=== PATIENT | male | born 1980 | race Caucasian/White ===

== ENCOUNTER 2020-11-24 07:06 | Emergency (ER) | payer SELFPAY ==
[2020-11-24 08:37] LABS: SARS-COV-2 RT PCR NEGATIVE (NEGATIVE)
--- NOTE | 2020-11-24 08:38 | ER ---
Nurse's Notes [facility] Name: Rich Land Age: 40 yrs Sex: Male : 1980 Arrival Date: 11/24/2020 Time: 07:09 Bed Waiting Private MD: Diagnosis: Acute upper respiratory infection, unspecified Presentation: 11/24 07:14 Chief complaint: Patient states: yesterday i started getting bad congestion. cough. tw2 then last night i got sob and tightness in chest. Coronavirus screen: congestion, shortness of breath, Client presents with at least one sign or symptom that may indicate coronavirus-19. Standard/surgical mask placed on the client. Provider contacted for isolation considerations. Ebola Screen: Patient denies travel to an Ebola-affected area in the 21 days before illness onset. Initial Sepsis Screen: Does the patient meet any 2 criteria? No. Patient's initial sepsis screen is negative. Does the patient have a suspected source of infection? No. Patient's initial sepsis screen is negative. Risk Assessment: Do you want to hurt yourself or someone else? Patient reports no desire to harm self or others. Onset of symptoms was November 24, 2020. 07:14 Method Of Arrival: Ambulatory tw2 07:14 Acuity: BHAVYA 4 tw2 Triage Assessment: 07:17 General: Appears in no apparent distress. Behavior is calm, cooperative, appropriate tw2 for age. Pain: Denies pain. EENT: Reports nasal congestion nasal discharge. Respiratory: Reports. 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 - Social history:: Smoking status: Reported history of juuling and/or vaping. 5% nicotine. Screenin:44 Abuse screen: Denies threats or abuse. Nutritional screening: No deficits noted. tw2 Tuberculosis screening: No symptoms or risk factors identified. Fall Risk None identified. Assessment: 07:29 Reassessment: pt swabbed in triage. tw2 08:44 Reassessment: Patient appears in no apparent distress at this time. No changes from tw2 previously documented assessment. Patient and/or family updated on plan of care and expected duration. Pain level reassessed. Patient is alert, oriented x 3, equal unlabored respirations, skin warm/dry/pink. provider in triage room going over results at this time. Vital Signs: 07:14 BP 137 / 86; Pulse 77; Resp 17; Temp 98.2; Pulse Ox 100% on R/A; tw2 ED Course: 07:09 Patient arrived in ED. as 07:14 Brigid Srinivasan FNP-C is [facility]. kb 07:14 Marlo Richardson MD is Attending Physician. kb 07:16 Triage completed. tw2 07:17 Arm band placed on. tw2 08:44 n/a. tw2 08:44 Assist provider with bone marrow aspiration. Patient did not have IV access during this tw2 emergency room visit. Administered Medications: No medications were administered Outcome: 08:38 Discharge ordered by . kb 08:44 Discharged to home ambulatory. tw2 08:44 Condition: stable 08:44 Discharge instructions given to patient, Instructed on discharge instructions, follow up and referral plans. Demonstrated understanding of instructions, follow-up care. 08:45 Patient left the ED. tw2 Signatures: Brigid Srinivasan FNP-C FNP-Ckb Martinez, Amelia as Lily Weston, RN RN tw2
--- NOTE | 2020-11-24 08:38 | EDPHYS ---
Physician Documentation [facility] Name: Rich Land Age: 40 yrs Sex: Male : 1980 Arrival Date: 11/24/2020 Time: 07:09 Bed Waiting Private MD: ED Physician Marlo Richardson HPI: 11/24 08:18 This 40 yrs old Male presents to ER via Ambulatory with complaints of Cough, kb Congestion. 08:18 The patient or guardian reports cough, that is intermittent, described as mild, kb difficulty breathing. Onset: The symptoms/episode began/occurred yesterday. Severity of symptoms: At their worst the symptoms were moderate, in the emergency department the symptoms have improved. Modifying factors: The symptoms are alleviated by nothing, the symptoms are aggravated by nothing. Associated signs and symptoms: The patient has no apparent associated signs or symptoms. The patient has not experienced similar symptoms in the past. The patient has not recently seen a physician. Patient reports cough and congestion started yesterday. Last night had shortness of breath. This morning congestion and cough continue. No fever or chills.. 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 - Social history:: Smoking status: Reported history of juuling and/or vaping. 5% nicotine. ROS: 07:19 Constitutional: Negative for fever, chills, and weight loss. kb 07:19 ENT: Positive for sinus congestion. 07:19 Respiratory: Positive for cough, shortness of breath. 07:19 All other systems are negative. Exam: 08:19 Constitutional: This is a well developed, well nourished patient who is awake, alert, kb and in no acute distress. Head/Face: Normocephalic, atraumatic. ENT: Moist Mucous membranes Cardiovascular: Regular rate and rhythm with a normal S1 and S2. No gallops, murmurs, or rubs. No pulse deficits. Respiratory: Respirations even and unlabored. No increased work of breathing, no retractions or nasal flaring. Abdomen/GI: Soft, non-tender. No distention Skin: Warm, dry with normal turgor. Normal color. MS/ Extremity: Pulses equal, no cyanosis. Neurovascular intact. Full, normal range of motion. Neuro: Awake and alert, GCS 15, oriented to person, place, time, and situation. Moves all extremities. Normal gait. Psych: Awake, alert, with orientation to person, place and time. Behavior, mood, and affect are within normal limits. Vital Signs: 07:14 BP 137 / 86; Pulse 77; Resp 17; Temp 98.2; Pulse Ox 100% on R/A; tw2 MDM: 07:14 Patient medically screened. kb 08:19 Data reviewed: vital signs, nurses notes. Data interpreted: Pulse oximetry: on room air kb is 100 %. Interpretation: normal. Counseling: I had a detailed discussion with the patient and/or guardian regarding: the historical points, exam findings, and any diagnostic results supporting the discharge/admit diagnosis, lab results, the need for outpatient follow up, a family practitioner, to return to the emergency department if symptoms worsen or persist or if there are any questions or concerns that arise at home. 11/24 08:37 Order name: COVID-19/FLU A+B; Complete Time: 08:37 EDMS Administered Medications: No medications were administered Disposition Summary: 11/24/20 08:38 Discharge Ordered Location: Home kb Condition: Stable kb Diagnosis - Acute upper respiratory infection, unspecified kb Followup: kb - With: Emergency Department - When: As needed - Reason: Worsening of condition Followup: kb - With: Private Physician - When: 2 - 3 days - Reason: Recheck today's complaints, Continuance of care, Re-evaluation by your physician Discharge Instructions: - Upper Respiratory Infection, Adult, [id number] kb - Viral Respiratory Infection, [id number] kb - Discharge Summary Sheet tw2 Forms: - Medication Reconciliation Form kb - Thank You Letter kb - Antibiotic Education kb - Work release form tw2 - Prescription Opioid Use kb Addendum: 11/26/2020 07:15 Co-signature as Attending Physician, Marlo Richardson MD. r n Signatures: Dispatcher [employer] EDNY Brigid Srinivasan, CHILD LIFE SPECIALIST-C CHILD LIFE SPECIALIST-Marlo Villalobos MD MD rn Wise, Tara, RN RN tw2 Corrections: (The following items were deleted from the chart) 11/24 07:58 07:19 CORONAVIRUS+MR.LAB.RAQUEL ordered. EDMS EDMS 07:59 07:19 Influenza Screen (A \T\ B)+KESHA.CHIOMA ordered. EDMS EDMS
[2020-11-24 08:50] VITALS: BP 137/86; TEMP 98.2; O2SAT 100
== END 2020-11-24 08:45 | disposition home or self-care (01) ==
LOC: ER 07:06
DX: J06.9 Acute upper respiratory infection, unspecified (principal); Z20.822 Contact with and (suspected) exposure to COVID-19
CPT/HCPCS: 0240U; 99284

== ENCOUNTER 2021-09-26 21:37 | Emergency (ER) | payer SELFPAY ==
[2021-09-26 22:36] LABS: Absolute Lymphocytes (CBC) 2.2 K/uL (0.7-4.9); Hematocrit 47.1 % (39.6-49.0); MCV 86.2 fL (80-100); MPV 6.9 fL (7.6-11.3); RBC Red Blood Cell Count 5.47 M/uL (4.33-5.43)
[2021-09-26 22:42] LABS: Albumin 4.1 g/dL (3.4-5.0); Bilirubin Direct 0.1 mg/dL (0-0.2); Bilirubin Total 0.5 mg/dL (0.2-1.0); Magnesium 2.2 mg/dL (1.8-2.4); Potassium 3.7 mmol/L (3.5-5.1); Protein, Total 7.6 g/dL (6.4-8.2); Troponin High Sensitivity 3.5 pg/mL (<58.9)
[2021-09-26 22:56] LABS: Protime INR 1.01
[2021-09-27 00:41] LABS: Urine Blood Negative (Negative); Urine Glucose Negative (Negative); Urine Protein Negative (Negative); Urine Specific Gravity >=1.030 (1.005-1.030); Urine pH 6.5 (5.0-7.0)
[2021-09-27] MEDS ORDERED: NA CHLORIDE 0.9% 1,000 ML ONE (00:49)
[2021-09-27 01:16] LABS: Barbiturates NEGATIVE (NEGATIVE); Benzodiazepines NEGATIVE (NEGATIVE); Cocaine NEGATIVE (NEGATIVE); METHAMPHETAM NEGATIVE (NEGATIVE); Methadone NEGATIVE (NEGATIVE); Opiates NEGATIVE (NEGATIVE); Phencyclidine NEGATIVE (NEGATIVE); THC Cannibis POSITIVE (NEGATIVE)
--- NOTE | 2021-09-27 02:12 | EDPHYS ---
Physician Documentation [facility] Name: Rich Land Age: 41 yrs Sex: Male : 1980 Arrival Date: 09/26/2021 Time: 21:43 Bed 6 Private MD: ED Physician Otis Bashir HPI: 09/26 22:15 This 41 yrs old Male presents to ER via Ambulatory with complaints of Chest Pain. mh7 22:15 The patient or guardian reports chest pain that is located primarily in the anterior mh7 chest wall, left. Onset: 2 week(s) ago. The pain does not radiate. 22:15 Associated signs and symptoms: Pertinent negatives: abdominal pain, cough, diaphoresis, mh7 dizziness, headache, lower extremity pain, lower extremity swelling, lightheadedness, nausea, near syncope, palpitations, recent travel, shortness of breath, syncope, vomiting. 22:15 The chest pain is described as a pressure. Duration: The patient or guardian reports mh7 multiple episodes, that are intermittent, that wax and wane, with no pattern. Modifying factors: The symptoms are alleviated by nothing. the symptoms are aggravated by nothing. Severity of pain: At its worst the pain was moderate 7 day(s) ago, in the emergency department the pain has improved moderately. Historical: - Allergies: 21:56 No Known Allergies; eh3 - Home Meds: 21:56 None [Active]; eh3 - Immunization history:: Adult Immunizations unknown. - Social history:: Smoking status: Patient/guardian denies using tobacco, Stopped _ months ago 9 Patient/guardian denies using alcohol, street drugs, tobacco products, Smoking status: Reported history of juuling and/or vaping. ROS: 22:15 Constitutional: Negative for fever, chills, and weight loss, Eyes: Negative for injury, mh7 pain, redness, and discharge, ENT: Negative for injury, pain, and discharge, Neck: Negative for injury, pain, and swelling, Respiratory: Negative for shortness of breath, cough, wheezing, and pleuritic chest pain, Abdomen/GI: Negative for abdominal pain, nausea, vomiting, diarrhea, and constipation, Back: Negative for injury and pain, : Negative for injury, bleeding, discharge, and swelling, MS/Extremity: Negative for injury and deformity, Skin: Negative for injury, rash, and discoloration, Neuro: Negative for headache, weakness, numbness, tingling, and seizure, Psych: Negative for depression, anxiety, suicide ideation, homicidal ideation, and hallucinations, Allergy/Immunology: Negative for hives, rash, and allergies, Endocrine: Negative for neck swelling, polydipsia, polyuria, polyphagia, and marked weight changes, Hematologic/Lymphatic: Negative for swollen nodes, abnormal bleeding, and unusual bruising. Exam: 22:15 Constitutional: This is a well developed, well nourished patient who is awake, alert, mh7 and in no acute distress. Head/Face: Normocephalic, atraumatic. Eyes: Pupils equal round and reactive to light, extra-ocular motions intact. Lids and lashes normal. Conjunctiva and sclera are non-icteric and not injected. Cornea within normal limits. Periorbital areas with no swelling, redness, or edema. Neck: Trachea midline, no thyromegaly or masses palpated, and no cervical lymphadenopathy. Supple, full range of motion without nuchal rigidity, or vertebral point tenderness. No Meningismus. Chest/axilla: Normal chest wall appearance and motion. Nontender with no deformity. No lesions are appreciated. Cardiovascular: Regular rate and rhythm with a normal S1 and S2. No gallops, murmurs, or rubs. Normal PMI, no JVD. No pulse deficits. Respiratory: Lungs have equal breath sounds bilaterally, clear to auscultation and percussion. No rales, rhonchi or wheezes noted. No increased work of breathing, no retractions or nasal flaring. Abdomen/GI: Soft, non-tender, with normal bowel sounds. No distension or tympany. No guarding or rebound. No evidence of tenderness throughout. Back: No spinal tenderness. No costovertebral tenderness. Full range of motion. Skin: Warm, dry with normal turgor. Normal color with no rashes, no lesions, and no evidence of cellulitis. MS/ Extremity: Pulses equal, no cyanosis. Neurovascular intact. Full, normal range of motion. Neuro: Awake and alert, GCS 15, oriented to person, place, time, and situation. Cranial nerves II-XII grossly intact. Motor strength 5/5 in all extremities. Sensory grossly intact. Cerebellar exam normal. Normal gait. Psych: Awake, alert, with orientation to person, place and time. Behavior, mood, and affect are within normal limits. Vital Signs: 21:51 BP 137 / 97; Pulse 80; Resp 18; Temp 97.9(TE); Pulse Ox 100% on R/A; Weight 92.99 kg; eh3 Height 6 ft. 2 in. (187.96 cm); Pain 9/10; 22:16 BP 131 / 88; Pulse 81; Resp 17 S; Pulse Ox 100% on R/A; Pain 5/10; aa9 22:27 BP 135 / 90; Pulse 71; Resp 18; Pulse Ox 98% on R/A; kd3 21:51 Body Mass Index 26.32 (92.99 kg, 187.96 cm) 3 MDM: 09/27 02:09 Differential diagnosis: acute myocardial infarction, acute pericarditis, anxiety, mh7 coronary artery disease chest wall pain, costochondritis, esophagitis, gastritis, gastroesophageal reflux disease (GERD), myocarditis, pancreatitis, pericarditis, pleurisy, pneumonia, pneumothorax, pulmonary embolus. HEART Score: History: Slightly Suspicious (0), ECG: Normal (0), Age: < or = 45 years (0), Risk Factors: No Risk Factors Known (0), Troponin: < or = 1 x Normal Limit (0), Total Score = 0. Data reviewed: vital signs, nurses notes, lab test result(s), cardiac enzymes, CBC, electrolytes, urinalysis, EKG, radiologic studies, plain films. Data interpreted: Pulse oximetry: on room air is 98 %. Interpretation: normal. Counseling: I had a detailed discussion with the patient and/or guardian regarding: the historical points, exam findings, and any diagnostic results supporting the discharge/admit diagnosis, lab results, radiology results, the need for outpatient follow up, to return to the emergency department if symptoms worsen or persist or if there are any questions or concerns that arise at home. Response to treatment: the patient's symptoms have resolved after treatment, the patient's blood pressure is in an acceptable range, mental status has returned to baseline, the patient no longer shows bradycardia, the patient is not short of breath, the patient is not tachycardic, the patient's pain is gone, the patient's temperature has normalized. 02:11 Patient medically screened. [facility] 09/26 22:03 Order name: Basic Metabolic Panel; Complete Time: 00:38 [facility] 09/26 22:03 Order name: CBC with Diff; Complete Time: 00:38 [facility] 09/26 22:03 Order name: LFT's; Complete Time: 00:38 [facility] 09/26 22:03 Order name: Magnesium; Complete Time: 00:38 [facility] 09/26 22:03 Order name: NT PRO-BNP; Complete Time: 00:38 [facility] 09/26 22:03 Order name: PT-INR; Complete Time: 00:38 [facility] 09/26 22:03 Order name: Troponin HS; Complete Time: 00:38 [facility] 09/26 22:21 Order name: UDS; Complete Time: 01:34 [facility] 09/26 22:22 Order name: COVID-19 SARS RT PCR (Document "Date of Onset" if Symptomatic); Complete [facility] Time: 00:38 09/26 22:22 Order name: D-Dimer [facility] 09/26 22:26 Order name: D-Dimer; Complete Time: 00:38 [facility] 09/26 22:26 Order name: Creatine Phosphokinase; Complete Time: 00:38 [facility] 09/27 00:41 Order name: Urine Dipstick-Ancillary; Complete Time: 01:34 [facility] 09/26 22:03 Order name: XRAY Chest (1 view) 09/26 22:03 Order name: EKG; Complete Time: 22:05 09/26 22:03 Order name: Cardiac monitoring; Complete Time: 22:19 [facility] 09/26 22:03 Order name: EKG - Nurse/Tech; Complete Time: 22:25 [facility] 09/26 22:03 Order name: IV Saline Lock; Complete Time: 22:19 [facility] 09/26 22:03 Order name: Labs collected and sent; Complete Time: 22:19 [facility] 09/26 22:03 Order name: O2 Per Protocol; Complete Time: 22:19 [facility] 09/26 22:03 Order name: O2 Sat Monitoring; Complete Time: 22:19 [facility] 09/26 22:21 Order name: Urine Dipstick-Ancillary (obtain specimen); Complete Time: 00:41 [facility] Administered Medications: 00:44 Drug: NS 0.9% 1000 ml Route: IV; Rate: 1000 ml; Site: right antecubital; kd3 02:46 Follow up: Response: No adverse reaction; IV Status: Completed infusion kd3 Disposition Summary: 09/27/21 02:11 Discharge Ordered Location: Home [facility] Problem: an ongoing problem [facility] Symptoms: have improved [facility] Condition: Stable [facility] Diagnosis - Chest pain, unspecified [facility] - Cannabis abuse [facility] Followup: [facility] - With: Private Physician - When: 1 - 2 days - Reason: Worsening of condition, Recheck today's complaints, Continuance of care, Re-evaluation by your physician Discharge Instructions: - Discharge Summary Sheet [facility] - Cannabis Use Disorder [facility] - Nonspecific Chest Pain, Adult, [id number] [facility] Forms: - Medication Reconciliation Form [facility] - Thank You Letter [facility] - Antibiotic Education [facility] - Prescription Opioid Use [facility] Signatures: Dispatcher [employer] Otis Conklin MD MD 7 Siva Sanchez RN RN as6 Mahnaz Gray RN RN 3 Regina Arango [facility] Alysa Barton, MARGARITO RN aa9 Corrections: (The following items were deleted from the chart) 09/26 21:57 21:56 PMHx: recovering addict (meth); [place] [id number] 21:57 21:56 PSHx: hernia repair; [place] [id number] 22:23 22:21 CREATINE PHOSPHOKINASE+C.LAB.BRZ ordered. EDME EDME
--- NOTE | 2021-09-27 02:12 | ER ---
Nurse's Notes [facility] Name: Rich Land Age: 41 yrs Sex: Male : 1980 Arrival Date: 09/26/2021 Time: 21:43 Bed 6 Private MD: Diagnosis: Chest pain, unspecified;Cannabis abuse Presentation: 09/26 21:51 Chief complaint: Patient states: chest pain for past 2 weeks, worsened today at 1515. eh3 Pressure on left side of chest. Coronavirus screen: Vaccine status: Patient reports being unvaccinated. Ebola Screen: No symptoms or risks identified at this time. Initial Sepsis Screen: Does the patient meet any 2 criteria? No. Patient's initial sepsis screen is negative. Does the patient have a suspected source of infection? No. Patient's initial sepsis screen is negative. Risk Assessment: Do you want to hurt yourself or someone else? Patient reports no desire to harm self or others. Onset of symptoms was September 26, 2021 at 15:15. 21:51 Method Of Arrival: Ambulatory eh3 21:51 Acuity: BHAVYA 2 eh3 Triage Assessment: 21:56 General: Appears in no apparent distress. comfortable, Behavior is calm, cooperative, eh3 appropriate for age. Pain: Complains of pain in left clavicle and anterior aspect of left upper chest Pain does not radiate. Pain currently is 4 out of 10 on a pain scale. at worst was 9 out of 10 on a pain scale. Quality of pain is described as pressure, squeezing, Pain began suddenly, at 1515 today Is intermittent. EENT: No signs and/or symptoms were reported regarding the EENT system. Neuro: Level of Consciousness is awake, alert, obeys commands, Oriented to person, place, time, situation. Cardiovascular: Reports chest pain, Capillary refill < 3 seconds Patient's skin is warm and dry. Respiratory: Airway is patent Respiratory effort is even, unlabored. GI: No signs and/or symptoms were reported involving the gastrointestinal system. : No signs and/or symptoms were reported regarding the genitourinary system. Derm: No signs and/or symptoms reported regarding the dermatologic system. Musculoskeletal: No signs and/or symptoms reported regarding the musculoskeletal system. Historical: - Allergies: 21:56 No Known Allergies; eh3 - Home Meds: 21:56 None [Active]; eh3 - Immunization history:: Adult Immunizations unknown. - Social history:: Smoking status: Patient/guardian denies using tobacco, Stopped _ months ago 9 Patient/guardian denies using alcohol, street drugs, tobacco products, Smoking status: Reported history of juuling and/or vaping. Screenin:12 Abuse screen: Denies threats or abuse. Denies injuries from another. Nutritional aa9 screening: No deficits noted. Tuberculosis screening: No symptoms or risk factors identified. Fall Risk None identified. Assessment: 22:09 General:. General: Appears in no apparent distress. comfortable, Behavior is calm, aa9 cooperative, States,"The chest pain was 9/10 after work, a little after PM today when I was driving, my vision was blurry and I had to pullover.". Pain: Complains of pain in anterior aspect of left upper chest and left breast Pain does not radiate. Pain currently is 5 out of 10 on a pain scale. Pain began 2 weeks ago Is intermittent, Aggravated by every night when laying in bed. Vital Signs: 21:51 BP 137 / 97; Pulse 80; Resp 18; Temp 97.9(TE); Pulse Ox 100% on R/A; Weight 92.99 kg; 3 Height 6 ft. 2 in. (187.96 cm); Pain 9/10; 22:16 BP 131 / 88; Pulse 81; Resp 17 S; Pulse Ox 100% on R/A; Pain 5/10; aa9 22:27 BP 135 / 90; Pulse 71; Resp 18; Pulse Ox 98% on R/A; kd3 21:51 Body Mass Index 26.32 (92.99 kg, 187.96 cm) 3 ED Course: 21:43 Patient arrived in ED. ja2 21:56 Triage completed. eh3 21:56 Arm band placed on right wrist. eh3 22:01 Siva Sanchez RN is Primary Nurse. as6 22:11 Otis Bashir MD is Attending Physician. 7 22:12 Patient has correct armband on for positive identification. Bed in low position. Side aa9 rails up X2. Client placed on continuous cardiac and pulse oximetry monitoring. NIBP monitoring applied. 22:19 Troponin HS Sent. kd3 22:19 PT-INR Sent. kd3 22:19 NT PRO-BNP Sent. kd3 22:19 Magnesium Sent. kd3 22:19 LFT's Sent. kd3 22:19 CBC with Diff Sent. kd3 22:19 Basic Metabolic Panel Sent. kd3 22:19 Patient maintains SpO2 saturation greater than 95% on room air. aa9 22:28 XRAY Chest (1 view) In Process Unspecified. EDMS 22:32 COVID-19 SARS RT PCR (Document "Date of Onset" if Symptomatic) Sent. aa9 23:38 D-Dimer Sent. aa9 23:39 COVID-19 SARS RT PCR (Document "Date of Onset" if Symptomatic) Sent. aa9 09/27 00:41 UDS Sent. kd3 Administered Medications: 00:44 Drug: NS 0.9% 1000 ml Route: IV; Rate: 1000 ml; Site: right antecubital; kd3 02:46 Follow up: Response: No adverse reaction; IV Status: Completed infusion kd3 Medication: 09/26 22:27 VIS not applicable for this client. kd3 Outcome: 09/27 02:11 Discharge ordered by . [facility] 02:46 Patient left the ED. kd3 Signatures: Dispatcher [employer] Otis Conklin MD MD 7 Luz Main Ashby, RN RN as6 Mahnaz Gray RN RN kd3 Regina Arango 3 Alysa Barton, MARGARITO RN aa9 Corrections: (The following items were deleted from the chart) 09/26 21:57 21:56 PMHx: recovering addict (meth); 3 [facility] 21:57 21:56 PSHx: hernia repair; 3 3
[2021-09-27 02:51] VITALS: TEMP 97.9
[2021-09-27 02:58] VITALS: BP 135/90; O2SAT 98
--- NOTE | 2021-09-27 07:49 | EKG ---
Test Date: 2021-09-26 Test Time: 22:01:59 Tower Dragline Operator: ONEYDA MEASUREMENT RESULTS: Intervals: Rate: 68 MN: 144 QRSD: 88 QT: 368 QTc: 391 [place]: P: 87 MN: 144 QRS: 68 T: 54 INTERPRETIVE STATEMENTS: Normal sinus rhythm with sinus arrhythmia Normal ECG Compared to ECG 06/08/1999 19:58:00 T-wave abnormality no longer present Electronically Signed On 09-27-21 07:48:14 CDT by Adithya Velazquez
--- NOTE | 2021-09-27 11:33 | RAD REPORT ---
EXAM DESCRIPTION: RAD - Chest Single View - 09/26/2021 10:26 pm CLINICAL HISTORY: CHEST PAIN. COMPARISON: None. TECHNIQUE: Single view AP chest radiograph(s). FINDINGS: The lungs are clear. No pulmonary infiltrate or edema identified. No pleural effusion. N o pneumothorax. Nonenlarged cardiomediastinal silhouette. No significant osseous abnormality. IMPRESSION: No acute cardiopulmonary abnormality identified by radiograph. Electronically signed by: Stefanie Mace MD 09/26/2021 10:44 PM CDT Due to temporary technical issues with the PACS/Fluency reporting system, reports are being signed by the in house radiologists without review as a courtesy to insure prompt reporting. The interpreting radiologist is fully responsible for the content of the report.
== END 2021-09-27 02:46 | disposition home or self-care (01) ==
LOC: ER 21:37
DX: R07.89 Other chest pain (principal); F12.10 Cannabis abuse, uncomplicated; Z20.822 Contact with and (suspected) exposure to COVID-19
CPT/HCPCS: 36415; 71045; 80048; 80076; 80307; 81003; 82550; 83735; 83880; 84484; 85025; 85379; 85610; 93005; J7030; U0003

== ENCOUNTER 2022-08-23 08:17 | Emergency (ER) | payer SELFPAY ==
[2022-08-23] MEDS ORDERED: dexAMETHasone 10 MG/ML VIAL ONE (08:36)
--- NOTE | 2022-08-23 09:01 | EDPHYS ---
Physician Documentation [facility] Name: Rich Land Age: 42 yrs Sex: Male : 1980 Arrival Date: 08/23/2022 Time: 08:17 Bed 20 Private MD: ED Physician Caleb Lujan HPI: 08/23 08:19 This 42 yrs old Male presents to ER via Unassigned with complaints of Difficulty jmm Swallowing. 08:19 The patient presents with sore throat. Onset: The symptoms/episode began/occurred jmm gradually, 2 day(s) ago. Modifying factors: The symptoms are alleviated by nothing, the symptoms are aggravated by nothing. This is a 42 year old male with no chronic medical conditions that presents to the ED with complaints of sore throat, painful swallowing. Symptoms began approx 2 days ago. Denies infectious exposure. . Historical: - Allergies: 08:25 No Known Allergies; ll1 - PMHx: 08:25 None; ll1 - PSHx: 08:25 hernia repair; ll1 - Immunization history:: Client reports having NOT received the Covid vaccine. - Social history:: Smoking status: Reported history of juuling and/or vaping. ROS: 08:19 Constitutional: Positive for body aches. jmm 08:19 Respiratory: Positive for cough. 08:19 All other systems are negative. Exam: 08:19 Constitutional: This is a well developed, well nourished patient who is awake, alert, jmm and in no acute distress. Head/Face: atraumatic. Eyes: EOMI, no conjunctival erythema appreciated 08:19 Neck: Trachea midline, Supple Chest/axilla: Normal chest wall appearance and motion. Cardiovascular: Regular rate and rhythm. No edema appreciated Respiratory: Normal respirations, no respiratory distress appreciated Abdomen/GI: Non distended Back: Normal ROM Skin: General appearance color normal MS/ Extremity: Moves all extremities, no obvious deformities appreciated, no edema noted to the lower extremities Neuro: Awake and alert Psych: Behavior is normal, Mood is normal, Patient is cooperative and pleasant 08:19 ENT: Posterior pharynx: Airway: normal, Uvula: midline, erythema, that is moderate, exudate, that is moderate, peritonsillar mass, is not appreciated. Vital Signs: 08:25 BP 151 / 99; Pulse 88; Resp 16; Temp 98.2(O); Pulse Ox 99% on R/A; Weight 95.71 kg; ll1 Height 6 ft. 1 in. ; Pain 10; 08:25 Body Mass Index 27.84 (95.71 kg, 185.42 cm) ll1 08:25 Pain Scale: Adult ll1 MDM: 08:19 Patient medically screened. bs3 08/23 08:23 Order name: Strep jmm 08/23 08:45 Order name: Throat Culture EDMS Administered Medications: 08:30 Drug: Dexamethasone IM 10 mg Route: IM; Site: right deltoid; iw 08:40 Follow up: Response: No adverse reaction iw Disposition Summary: 08/23/22 09:00 Discharge Ordered Location: Home [facility] Condition: Stable [facility] Diagnosis - Acute pharyngitis, unspecified [facility] Followup: jmm - With: Private Physician - When: 2 - 3 days - Reason: Recheck today's complaints, Continuance of care, Re-evaluation by your physician Discharge Instructions: - Discharge Summary Sheet [facility] - Pharyngitis [facility] Forms: - Medication Reconciliation Form [facility] - Thank You Letter [facility] - Antibiotic Education jmm - Prescription Opioid Use [facility] - Work release form iw Prescriptions: - Amoxicillin 875 mg Oral Tablet - take 1 tablet by ORAL route every 12 hours for 10 days; 20 tablet; Refills: 0, [facility] Product Selection Permitted Signatures: Dispatcher [employer] EDMS Scotty Bright PA PA jmm Williams, Irene, RN RN iw Amaris Aleman RN RN ll1 Caleb Lujan MD MD bs3
--- NOTE | 2022-08-23 09:01 | ER ---
Nurse's Notes [facility] Name: Rich Land Age: 42 yrs Sex: Male : 1980 Arrival Date: 08/23/2022 Time: 08:17 Bed 20 Private MD: Diagnosis: Acute pharyngitis, unspecified Presentation: 08/23 08:25 Chief complaint: Patient states: Sore throat, weakness, diarrhea, slight cough started ll1 Saturday. No fever. Coronavirus screen: Vaccine status: Patient reports being unvaccinated. Client denies travel out of the [place] in the last 14 days. cough unrelated to allergies, diarrhea, fatigue, muscle pain, sore throat, Client presents with at least one sign or symptom that may indicate coronavirus-19. Standard/surgical mask placed on the client. Ebola Screen: Patient denies travel to an Ebola-affected area in the 21 days before illness onset. Initial Sepsis Screen: Does the patient meet any 2 criteria? No. Patient's initial sepsis screen is negative. Does the patient have a suspected source of infection? Yes: Other: sore throat. Risk Assessment: Do you want to hurt yourself or someone else? Patient reports no desire to harm self or others. Onset of symptoms was August 21, 2022. 08:25 Method Of Arrival: Ambulatory 1 08:25 Acuity: BHAVYA 4 ll1 Triage Assessment: 08:27 General: Appears uncomfortable, ill, Behavior is calm, cooperative, appropriate for 2 age. Pain: Complains of pain in throat Pain currently is 10 out of 10 on a pain scale. Quality of pain is described as aching, Pain began 2-3 days ago. Aggravated by eating, drinking. EENT: Reports pain when swallowing. Respiratory: Reports cough that is. GI: Reports diarrhea. :. Historical: - Allergies: 08:25 No Known Allergies; ll1 - PMHx: 08:25 None; ll1 - PSHx: 08:25 hernia repair; ll1 - Immunization history:: Client reports having NOT received the Covid vaccine. - Social history:: Smoking status: Reported history of juuling and/or vaping. Screenin:20 [facility] ED Fall Risk Assessment (Adult) History of falling in the last 3 months, iw including since admission No falls in past 3 months (0 pts). Abuse screen: Denies threats or abuse. Denies injuries from another. Nutritional screening: No deficits noted. Tuberculosis screening: No symptoms or risk factors identified. Assessment: 08:20 General: Appears in no apparent distress. Pain: Complains of pain in throat. Neuro: iw Level of Consciousness is awake, alert, obeys commands, Oriented to person, place, time, situation, Moves all extremities. Cardiovascular: Patient's skin is warm and dry. Respiratory: Respiratory effort is even, unlabored, Respiratory pattern is regular. Derm: Skin is intact, is healthy with good turgor. Musculoskeletal: Range of motion: intact in all extremities. Vital Signs: 08:25 BP 151 / 99; Pulse 88; Resp 16; Temp 98.2(O); Pulse Ox 99% on R/A; Weight 95.71 kg; ll1 Height 6 ft. 1 in. ; Pain 10/10; 08:25 Body Mass Index 27.84 (95.71 kg, 185.42 cm) ll1 08:25 Pain Scale: Adult ll1 ED Course: 08:19 Patient arrived in ED. rg4 08:20 Scotty Bright PA is PHCP. valeria 08:20 Caleb Lujan MD is Attending Physician. jmm 08:25 Arm band placed on Patient placed in an exam room, on a stretcher. ll1 08:26 Viji Stephen, MARGARITO is Primary Nurse. iw 08:27 Triage completed. ll1 09:20 Patient has correct armband on for positive identification. iw 09:20 No provider procedures requiring assistance completed. Patient did not have IV access iw during this emergency room visit. Administered Medications: 08:30 Drug: Dexamethasone IM 10 mg Route: IM; Site: right deltoid; iw 08:40 Follow up: Response: No adverse reaction iw Medication: 09:20 VIS not applicable for this client. iw Outcome: 09:00 Discharge ordered by . michele 09:21 Discharged to home ambulatory. iw 09:21 Condition: good 09:21 Discharge instructions given to patient, Instructed on discharge instructions, follow up and referral plans. medication usage, Demonstrated understanding of instructions, follow-up care, medications, Prescriptions given X 1. 09:22 Patient left the ED. em1 Signatures: Scotty Bright PA PA jmm Williams, Irene, MARGARITO RN iw Lemuel Jurado em1 Perla Horta rg4 Amaris Aleman, RN RN ll1
[2022-08-23 09:27] VITALS: BP 151/99; TEMP 98.2; O2SAT 99
== END 2022-08-23 09:22 | disposition home or self-care (01) ==
LOC: ER 08:17
DX: J02.9 Acute pharyngitis, unspecified (principal); R05.9 Cough, unspecified
CPT/HCPCS: 87070; 87081; 96372; 99284; J1100

== ENCOUNTER 2022-10-19 22:00 | Emergency (ER) | payer SELFPAY ==
[2022-10-19 23:27] LABS: Absolute Lymphocytes (CBC) 1.8 K/uL (0.7-4.9); Hematocrit 42.9 % (39.6-49.0); Lymphocytes % 16.6 % (15.3-44.8); MCV 89.4 fL (80-100); MPV 6.8 fL (7.6-11.3); RBC Red Blood Cell Count 4.81 M/uL (4.33-5.43)
[2022-10-19] MEDS ORDERED: NA CHLORIDE 0.9% 1,000 ML ONE (23:30)
[2022-10-19] MEDS ORDERED: KETOROLAC 30 MG/ML INJ ONE (23:30)
[2022-10-19 23:57] LABS: Albumin 3.7 g/dL (3.4-5.0); Bilirubin Total 0.3 mg/dL (0.2-1.0); Potassium 4.2 mEq/L (3.5-5.1); Protein, Total 7.3 g/dL (6.4-8.2)
--- NOTE | 2022-10-20 01:11 | EDPHYS ---
Physician Documentation [facility] Name: Rihc Land Age: 42 yrs Sex: Male : 1980 Arrival Date: 10/19/2022 Time: 22:00 Bed DIS1 Private MD: ED Physician Sam Milner HPI: 10/20 01:05 This 42 yrs old Male presents to ER via Ambulatory with complaints of Mouth shannan Problem - pain/infection. 01:05 The patient presents with broken tooth/teeth, pain, redness, swelling. The problem is shannan located in the left jaw. Onset: The symptoms/episode began/occurred 3 day(s) ago. Duration: The symptoms are continuous, and are steadily getting worse. Modifying factors: The symptoms are alleviated by nothing, the symptoms are aggravated by chewing. Associated signs and symptoms: The patient has no apparent associated signs or symptoms. Severity of symptoms: At their worst the symptoms were moderate, in the emergency department the symptoms are unchanged. The patient has not experienced similar symptoms in the past. Historical: - Allergies: 10/19 22:04 No Known Allergies; mb9 - Home Meds: 22:04 None [Active]; mb9 - PMHx: 22:04 None; mb9 - PSHx: 22:04 hernia repair; mb9 - Immunization history:: Adult Immunizations up to date. - Social history:: Smoking status: Reported history of juuling and/or vaping. ROS: 10/20 01:06 Constitutional: Negative for fever, chills, and weight loss, Eyes: Negative for injury, shannan pain, redness, and discharge, Neck: Negative for injury, pain, and swelling, Cardiovascular: Negative for chest pain, palpitations, and edema, Respiratory: Negative for shortness of breath, cough, wheezing, and pleuritic chest pain, Abdomen/GI: Negative for abdominal pain, nausea, vomiting, diarrhea, and constipation, Back: Negative for injury and pain, : Negative for injury, bleeding, discharge, and swelling, MS/Extremity: Negative for injury and deformity, Skin: Negative for injury, rash, and discoloration, Neuro: Negative for headache, weakness, numbness, tingling, and seizure, Psych: Negative for depression, anxiety, suicide ideation, homicidal ideation, and hallucinations, Allergy/Immunology: Negative for hives, rash, and allergies, Endocrine: Negative for neck swelling, polydipsia, polyuria, polyphagia, and marked weight changes, Hematologic/Lymphatic: Negative for swollen nodes, abnormal bleeding, and unusual bruising. ENT: Positive for dental pain, Gum pain Teeth pain Exam: 01:06 Constitutional: This is a well developed, well nourished patient who is awake, alert, shannan and in no acute distress. Head/Face: Normocephalic, atraumatic. Eyes: Pupils equal round and reactive to light, extra-ocular motions intact. Lids and lashes normal. Conjunctiva and sclera are non-icteric and not injected. Cornea within normal limits. Periorbital areas with no swelling, redness, or edema. Neck: Trachea midline, no thyromegaly or masses palpated, and no cervical lymphadenopathy. Supple, full range of motion without nuchal rigidity, or vertebral point tenderness. No Meningismus. Chest/axilla: Normal chest wall appearance and motion. Nontender with no deformity. No lesions are appreciated. Cardiovascular: Regular rate and rhythm with a normal S1 and S2. No gallops, murmurs, or rubs. Normal PMI, no JVD. No pulse deficits. Respiratory: Lungs have equal breath sounds bilaterally, clear to auscultation and percussion. No rales, rhonchi or wheezes noted. No increased work of breathing, no retractions or nasal flaring. Abdomen/GI: Soft, non-tender, with normal bowel sounds. No distension or tympany. No guarding or rebound. No evidence of tenderness throughout. Back: No spinal tenderness. No costovertebral tenderness. Full range of motion. Skin: Warm, dry with normal turgor. Normal color with no rashes, no lesions, and no evidence of cellulitis. MS/ Extremity: Pulses equal, no cyanosis. Neurovascular intact. Full, normal range of motion. Neuro: Awake and alert, GCS 15, oriented to person, place, time, and situation. Cranial nerves II-XII grossly intact. Motor strength 5/5 in all extremities. Sensory grossly intact. Cerebellar exam normal. Normal gait. Psych: Awake, alert, with orientation to person, place and time. Behavior, mood, and affect are within normal limits. :06 ENT: Mouth: Lips: normal, moist, Oral mucosa: normal, pink and intact, moist, Gums: noted to have cellulitis, reddened, on the lower left first molar, Posterior pharynx: is normal, no acute changes, Airway: normal, no evidence of obstruction, Dental exam: abscess, that is mild, specifically in the lower left first molar (#19), cellulitis, that is mild, dental caries, that is moderate, diffusely, fractured teeth are noted, diffusely, gum swelling, that is mild, specifically in the lower left second molar (#18) and lower left first molar (#19), malocclusion, is not appreciated, missing teeth, diffusely. Vital Signs: 10/19 22:03 BP 135 / 97; Pulse 70; Resp 18; Temp 98.2(O); Pulse Ox 100% ; Weight 92.53 kg; Height 6 mb9 ft. 2 in. ; Pain 10/10; 10/20 01:00 BP 131 / 89; Pulse 69; Resp 16; Pulse Ox 100% on R/A; Pain 2/10; pf1 10/19 22:03 Body Mass Index 26.19 (92.53 kg, 187.96 cm) [facility] 10/19 22:03 Pain Scale: Adult [facility] 10/20 01:00 Pain Scale: Adult pf1 MDM: 10/19 22:29 Patient medically screened. [facility] 10/20 01:08 Differential diagnosis: dental caries, gingivitis, dental abscess, pericoronitis, shannan aphthous ulcers, acute necrotizing ulcerative gingivitis, gingivostomatitis. Data reviewed: vital signs, nurses notes, lab test result(s), radiologic studies, CT scan. Consideration of Admission/Observation Escalation of care including admission/observation considered. I considered the following discharge prescriptions or medication management in the emergency department Medications were administered in the Emergency Department. See MAR. Test considered but Not performed: X-ray: no chest xray. Historians other than the Patient: none. 10/19 22:30 Order name: CBC with Diff; Complete Time: 00:35 [facility] 10/19 22:30 Order name: Comprehensive Metabolic Panel; Complete Time: 00:35 [facility] 10/19 22:30 Order name: CT Facial Bones W/O Con [facility] 10/19 23:13 Order name: IV Saline Lock; Complete Time: 23:19 mb9 Administered Medications: 10/19 23:23 Drug: NS 0.9% IV 1000 ml Route: IV; Rate: 1 bolus; Site: right antecubital; mb9 10/20 00:30 Follow up: Response: No adverse reaction; Marked relief of symptoms; IV Status: pf1 Completed infusion; IV Intake: 1000ml 10/19 23:23 Drug: Ketorolac IVP 30 mg Route: IVP; Site: right antecubital; mb9 10/20 00:20 Follow up: Response: No adverse reaction; Marked relief of symptoms pf1 01:21 CANCELLED (Patient Refused): [place] PO 10 mg-325 mg 1 tabs PO once pf1 01:25 Drug: Clindamycin PO 300 mg Route: PO; pf1 01:50 Follow up: Response: No adverse reaction; Marked relief of symptoms pf1 01:27 Not Given (Duplicate Order): Rocephin IV 1 grams IV at per protocol once; Given slow IV pf1 push per pharmacy instructions 01:27 CANCELLED (Duplicate Order): Clindamycin IVPB 900 mg IVPB once over 30 mins; (mix in 50 pf1 mL) 01:30 Drug: Rocephin (cefTRIAXone) IM 1 grams Route: IM; Site: left gluteus; pf1 01:50 Follow up: Response: No adverse reaction; Marked relief of symptoms pf1 Disposition Summary: 10/20/22 01:10 Discharge Ordered Location: Home shannan Problem: new shannan Symptoms: have improved shannan Condition: Stable shannan Diagnosis - Dental root caries - periapical abscess shannan - Dental caries, unspecified shannan Followup: shannan - With: Private Physician - When: 2 - 3 days - Reason: Recheck today's complaints, Continuance of care, Re-evaluation by your physician Followup: shannan - With: Alec Felipe DDS - When: 2 - 3 days - Reason: Recheck today's complaints, Re-evaluation by your physician Discharge Instructions: - Discharge Summary Sheet shannan - Dental Caries, Adult shannan - Dental Pain shannan - Dental Pain, [id number] shannan - Dental Caries, Adult, [id number] shannan Forms: - Medication Reconciliation Form shannan - Thank You Letter shannan - Antibiotic Education shannan - Prescription Opioid Use shannan - Patient Portal Instructions shannan Prescriptions: - acetaminophen-codeine 300-30 mg Oral tablet - take 2 tablet by ORAL route every 6 hours; 20 tablet; Refills: 0, Product shannan Selection Permitted - Clindamycin HCl 300 mg Oral Capsule - take 1 capsule by ORAL route every 6 hours for 10 days; 40 capsule; Refills: 0, shannan Product Selection Permitted Signatures: Dispatcher [employer] Sam Garcia MD MD cha Breneman, Simona Kemp RN RN mb9 Teresita Tijerina RN RN pf1 Corrections: (The following items were deleted from the chart) 01:21 01:14 [place]den PO 10 mg-325 mg 1 tabs PO once ordered. shannan pf1 01:27 00:40 Clindamycin IVPB 900 mg IVPB once over 30 mins; (mix in 50 mL) ordered. shannan pf1
--- NOTE | 2022-10-20 01:11 | ER ---
Nurse's Notes [facility] Name: Rich Land Age: 42 yrs Sex: Male : 1980 Arrival Date: 10/19/2022 Time: 22:00 Bed DIS1 Private MD: Diagnosis: Dental root caries-periapical abscess;Dental caries, unspecified Presentation: 10/19 22:03 Chief complaint: Patient states: "I have an infection in my mouth from my missing mb9 tooth. I tried to make an appointment with the dentist today and couldn't get in and they told me to come here. I can't eat, drink, and everything hurts". Coronavirus screen: Vaccine status: Patient reports being unvaccinated. Ebola Screen: No symptoms or risks identified at this time. Initial Sepsis Screen: Does the patient meet any 2 criteria? No. Patient's initial sepsis screen is negative. Does the patient have a suspected source of infection? No. Patient's initial sepsis screen is negative. Risk Assessment: Do you want to hurt yourself or someone else? Patient reports no desire to harm self or others. Onset of symptoms was October 19, 2022. 22:03 Method Of Arrival: Ambulatory mb9 22:03 Acuity: BHAVYA 3 mb9 Triage Assessment: 22:04 General: Appears uncomfortable, Behavior is cooperative. Pain: Complains of pain in mb9 mouth Pain does not radiate. Pain currently is 10 out of 10 on a pain scale. Quality of pain is described as throbbing, Pain began gradually, Is continuous, Aggravated by eating, drinking. EENT: Oral mucosa is dry. Poor dentition noted. Neuro: [place] Agitation-Sedation Scale (RASS): 0 - Alert and Calm Level of Consciousness is awake, alert, obeys commands, Oriented to person, place, time, situation, Appropriate for age. Cardiovascular: No deficits noted. Respiratory: Airway is patent Respiratory effort is even, unlabored, Respiratory pattern is regular, symmetrical. GI: No signs and/or symptoms were reported involving the gastrointestinal system. : No signs and/or symptoms were reported regarding the genitourinary system. Derm: Skin is pink, warm \\T\\ dry. Musculoskeletal: Range of motion: intact in all extremities. Historical: - Allergies: 22:04 No Known Allergies; mb9 - Home Meds: 22:04 None [Active]; mb9 - PMHx: 22:04 None; mb9 - PSHx: 22:04 hernia repair; mb9 - Immunization history:: Adult Immunizations up to date. - Social history:: Smoking status: Reported history of juuling and/or vaping. Screenin/05 00:45 [facility] ED Fall Risk Assessment (Adult) History of falling in the last 3 months, pf1 including since admission No falls in past 3 months (0 pts) Confusion or Disorientation No (0 pts) Intoxicated or Sedated No (0 pts) Impaired Gait No (0 pts) Mobility Assist Device Used No (0 pt) Altered Elimination No (0 pt) Score/Fall Risk Level 0 - 2 = Low Risk Oriented to surroundings, Maintained a safe environment, Educated pt \\T\\ family on fall prevention, incl call for assistance when getting out of bed, Assessed \\T\\ reinforced patient's understanding of fall precautions, Provided non-skid footwear, Hourly rounding (assess needs \\T\\ fall precautionary measures) done, Used ambulatory aids as needed (educated on \\T\\ assisted with), Used gait belt as appropriate. Abuse screen: Denies threats or abuse. Nutritional screening: No deficits noted. Tuberculosis screening: No symptoms or risk factors identified. Assessment: 00:45 General: Appears in no apparent distress. comfortable, well groomed, well developed, pf1 Behavior is calm, cooperative, appropriate for age, quiet. 00:45 Pain: Complains of pain in lower left second molar (#18) and lower left first molar pf1 (#19) and left jaw. Neuro: No deficits noted. Level of Consciousness is awake, alert, obeys commands, Oriented to person, place, time, situation. Cardiovascular: No deficits noted. Capillary refill < 3 seconds Patient's skin is warm and dry. Respiratory: No deficits noted. Airway is patent Respiratory effort is even, unlabored, Respiratory pattern is regular, symmetrical, Breath sounds are clear bilaterally. GI: No deficits noted. No signs and/or symptoms were reported involving the gastrointestinal system. : No deficits noted. No signs and/or symptoms were reported regarding the genitourinary system. EENT: left lower mouth pain with redness and swelling. Vital Signs: 10/19 22:03 BP 135 / 97; Pulse 70; Resp 18; Temp 98.2(O); Pulse Ox 100% ; Weight 92.53 kg; Height 6 [facility] ft. 2 in. ; Pain 10/10; 10/20 01:00 BP 131 / 89; Pulse 69; Resp 16; Pulse Ox 100% on R/A; Pain 2/10; pf1 10/19 22:03 Body Mass Index 26.19 (92.53 kg, 187.96 cm) [facility] 10/19 22:03 Pain Scale: Adult [facility] 10/20 01:00 Pain Scale: Adult pf1 ED Course: 10/19 22:00 Patient arrived in ED. am2 22:04 Triage completed. mb9 22: Arm band placed on. mb9 22:05 Patient has correct armband on for positive identification. pf1 22:28 Sam Milner MD is Attending Physician. shannan 23:10 Inserted saline lock: 20 gauge in right antecubital area, using aseptic technique. pf1 Blood collected. 23:19 Comprehensive Metabolic Panel Sent. 9 23:19 CBC with Diff Sent. 9 23:22 CT Facial Bones W/O Con In Process Unspecified. EDMS 10/20 00:45 Provided Education on: medication admnistration. pf1 00:45 No provider procedures requiring assistance completed. pf1 01:09 Alec Felipe DDS is Referral Physician. shannan 01:50 IV discontinued, intact, bleeding controlled, No redness/swelling at site. Pressure pf1 dressing applied. Administered Medications: 10/19 23:23 Drug: NS 0.9% IV 1000 ml Route: IV; Rate: 1 bolus; Site: right antecubital; [facility] 10/20 00:30 Follow up: Response: No adverse reaction; Marked relief of symptoms; IV Status: pf1 Completed infusion; IV Intake: 1000ml 10/19 23:23 Drug: Ketorolac IVP 30 mg Route: IVP; Site: right antecubital; [facility] 10/20 00:20 Follow up: Response: No adverse reaction; Marked relief of symptoms pf1 01:21 CANCELLED (Patient Refused): [place] PO 10 mg-325 mg 1 tabs PO once pf1 01:25 Drug: Clindamycin PO 300 mg Route: PO; pf1 01:50 Follow up: Response: No adverse reaction; Marked relief of symptoms pf1 01:27 Not Given (Duplicate Order): Rocephin IV 1 grams IV at per protocol once; Given slow IV pf1 push per pharmacy instructions 01:27 CANCELLED (Duplicate Order): Clindamycin IVPB 900 mg IVPB once over 30 mins; (mix in 50 pf1 mL) 01:30 Drug: Rocephin (cefTRIAXone) IM 1 grams Route: IM; Site: left gluteus; pf1 01:50 Follow up: Response: No adverse reaction; Marked relief of symptoms pf1 Medication: 10/19 01:50 VIS not applicable for this client. pf1 Intake: 10/20 00:30 IV: 1000ml; Total: 1000ml. pf1 Outcome: 01:10 Discharge ordered by . shannan 01:50 Discharged to home ambulatory. pf1 01:50 Condition: improved pf1 01:50 Discharge instructions given to patient, Instructed on discharge instructions, follow up and referral plans. Demonstrated understanding of instructions, follow-up care, medications, Prescriptions given X 2. 01:50 Patient left the ED. pf1 Signatures: Dispatcher [employer] EDMS Sam Milner MD MD cha Moreno, Amanda am2 Breneman, Mary Beth RN RN mb9 Teresita Tijerina RN RN pf1 Corrections: (The following items were deleted from the chart) 10/19 23:13 22:03 Acuity: BHAVYA 4 mb9 mb9 10/20 05:53 02:11 Patient left the ED. pf1 pf1
[2022-10-20] MEDS ORDERED: LIDOCAINE 1% MPF 2 ML AMPULE ONE (01:34)
[2022-10-20] MEDS ORDERED: CEFTRIAXONE 1000 MG/VIAL ONE (01:34)
[2022-10-20 03:16] VITALS: BP 135/97; TEMP 98.2; O2SAT 100
--- NOTE | 2022-10-20 23:16 | RAD REPORT ---
EXAM DESCRIPTION: CT Maxillofacial Without Intravenous Contrast CLINICAL HISTORY: The patient is 42 years old and is Male; FACIAL PAIN [facility] MAIN TECHNIQUE: Axial computed tomography images of the face without intravenous contrast. Sagittal and coronal reformatted images were created and reviewed. This CT exam was performed using one or more of the following dose reduction techniques: automated exposure control, adjustment of the mA and/o r kV according to patient size, and/or use of iterative reconstruction technique. COMPARISON: No relevant prior studies available. FINDINGS: BONES/JOINTS: No acute fracture. SOFT TISSUES: Unremarkable. ORBITS: Unremarkable. SINUSES: Small bilateral maxillary sinus retention cysts. No air-fluid levels. DENTAL: Asymmetric soft tissue fullness demonstrated about the left mandible. Prominent periapical lucency about the left first mandibular molar, suspicious for periapical abscess, with no definite co rtical breakthrough identified, allowing for lack of intravenous contrast. Multifocal periodontal disease noted. IMPRESSION: 1. Asymmetric soft tissue fullness demonstrated about the left mandible. Prominent per iapical lucency about the left first mandibular molar, suspicious for periapical abscess, with no def inite cortical breakthrough identified, allowing for lack of intravenous contrast. Given multifocal periodontal disease, recommend dental evaluation. 2. Otherwise, allowing for lack of intravenous contrast, no acute findings in the bones or soft tis sues of the face. Electronically signed by: Stephen Arzate MD 10/19/2022 11:39 PM CDT Due to temporary technical issues with the PACS/Fluency reporting system, reports are being signed by the in house radiologists without review as a courtesy to insure prompt reporting. The interpreting radiologist is fully responsible for the content of the report.
== END 2022-10-20 02:11 | disposition home or self-care (01) ==
LOC: ER 22:00
DX: K02.9 Dental caries, unspecified (principal); K02.7 Dental root caries
CPT/HCPCS: 36415; 70486; 76377; 80053; 85025; 96361; 96372; 96374; 99284; J0696; J7030

== ENCOUNTER 2023-06-26 02:02 | Emergency (ER) | payer SELFPAY ==
[2023-06-26] MEDS ORDERED: CEFTRIAXONE 1000 MG/VIAL ONE (02:38)
[2023-06-26] MEDS ORDERED: KETOROLAC 30 MG/ML INJ ONE (02:39)
[2023-06-26] MEDS ORDERED: LIDOCAINE 1% MPF 2 ML AMPULE ONE (02:39)
[2023-06-26] MEDS ORDERED: BUPIVACAINE 0.5% PF 10 ML VIAL ONE (02:39)
--- NOTE | 2023-06-26 02:48 | ER ---
Nurse's Notes [facility] Name: Rich Land Age: 43 yrs Sex: Male : 1980 Arrival Date: 06/26/2023 Time: 02:02 Bed 5 Private MD: Diagnosis: Dental caries, unspecified;Dental root caries, acute pulpitis Presentation: 06/25 02:11 Chief complaint: Patient states: Tooth pain to the lasts molar on the bottom left side. cm10 Pt states that the pain began yesterday. Coronavirus screen: Client denies travel out of the [place] in the last 14 days. At this time, the client does not indicate any symptoms associated with coronavirus-19. Ebola Screen: Patient denies travel to an Ebola-affected area in the 21 days before illness onset. No symptoms or risks identified at this time. Initial Sepsis Screen: Does the patient meet any 2 criteria? No. Patient's initial sepsis screen is negative. Does the patient have a suspected source of infection? No. Patient's initial sepsis screen is negative. Risk Assessment: Do you want to hurt yourself or someone else? Patient reports no desire to harm self or others. Onset of symptoms was June 26, 2023. 02:11 Method Of Arrival: Ambulatory cm10 02:11 Acuity: BHAVYA 4 cm10 Triage Assessment: 02:12 EENT: Poor dentition noted. Dental caries noted in lower left third molar (#17) Reports cm10 pain in lower left third molar. Historical: - Allergies: 02:12 No Known Allergies; cm10 - PMHx: 02:12 None; cm10 - PSHx: 02:12 hernia repair; cm10 - Immunization history:: Adult Immunizations up to date. - Infectious Disease History:: Denies. - Social history:: Smoking status: unknown. - Family history:: not pertinent. Screenin:58 [facility] ED Fall Risk Assessment (Adult) History of falling in the last 3 months, vc1 including since admission No falls in past 3 months (0 pts) Confusion or Disorientation No (0 pts) Intoxicated or Sedated No (0 pts) Impaired Gait No (0 pts) Mobility Assist Device Used No (0 pt) Altered Elimination No (0 pt) Score/Fall Risk Level 0 - 2 = Low Risk Oriented to surroundings, Maintained a safe environment, Educated pt \T\ family on fall prevention, incl call for assistance when getting out of bed. Abuse screen: Denies threats or abuse. Nutritional screening: No deficits noted. Tuberculosis screening: No symptoms or risk factors identified. Assessment: 02:56 Reassessment: Waiting on shot time. vc1 02:59 General: Appears in no apparent distress. uncomfortable, Behavior is calm, cooperative, vc1 appropriate for age. Pain: Complains of pain in lower left third molar (#17) Pain radiates to left jaw Pain currently is 10 out of 10 on a pain scale. Neuro: Level of Consciousness is awake, alert, obeys commands, Oriented to person, place, time, situation, Appropriate for age. Cardiovascular: No deficits noted. Respiratory: Airway is patent Respiratory effort is even, unlabored, Respiratory pattern is regular, symmetrical. GI: No deficits noted. No signs and/or symptoms were reported involving the gastrointestinal system. : No deficits noted. No signs and/or symptoms were reported regarding the genitourinary system. EENT: Reports pain in lower left third molar (#17). Derm: No deficits noted. No signs and/or symptoms reported regarding the dermatologic system. Musculoskeletal: No deficits noted. No signs and/or symptoms reported regarding the musculoskeletal system. Vital Signs: 02:11 BP 151 / 92; Pulse 85; Resp 16; Temp 98.2(O); Pulse Ox 98% on R/A; Weight 102.06 kg; cm10 Height 6 ft. 2 in. ; Pain 7/10; 02:11 Body Mass Index 28.89 (102.06 kg, 187.96 cm) cm10 02:11 Pain Scale: Adult cm10 [place] Coma Score: 02:51 Eye Response: spontaneous(4). Motor Response: obeys commands(6). Verbal Response: sp4 oriented(5). Total: 15. ED Course: 02:03 Patient arrived in ED. jj6 02:07 Rodrigo Castanon MD is Attending Physician. sp4 02:12 Triage completed. cm10 02:13 Arm band placed on Patient placed in an exam room, on a stretcher. cm10 02:45 Yuliya Aragon RN is Primary Nurse. vc1 02:58 Patient has correct armband on for positive identification. Bed in low position. Call vc1 light in reach. Provided Education on: complete ABX. Pulse ox on. NIBP on. 03:15 No provider procedures requiring assistance completed. Patient did not have IV access vc1 during this emergency room visit. Administered Medications: 02:56 Drug: Bupivacaine-Epinephrine Infiltration (0.5 %) 20 ml Infiltration once; to bedside vc1 {Note: administered by Dr. Castanon.} Route: Infiltration; 02:57 Drug: Ketorolac IM 60 mg IM once Route: IM; Site: left ventrogluteal; vc1 03:15 Follow up: Response: No adverse reaction; Marked relief of symptoms vc1 02:57 Drug: Rocephin (cefTRIAXone) IM 1 grams IM once Route: IM; Site: right ventrogluteal; vc1 03:15 Follow up: Response: No adverse reaction vc1 Medication: 02:59 VIS not applicable for this client. vc1 Outcome: 02:48 Discharge ordered by . jackie 03:15 Discharged to home ambulatory, vc1 03:15 Condition: improved 03:15 Discharge instructions given to patient, Instructed on discharge instructions, follow up and referral plans. medication usage, Demonstrated understanding of instructions, follow-up care, medications, Prescriptions given X 2, 03:15 Patient left the ED. vc1 Signatures: Kira Crews jj6 Yuliya Aragon RN RN vc1 Rodrigo Castanon MD MD sp4 Tamy Jurado RN RN cm10 Corrections: (The following items were deleted from the chart) 03:40 03:39 Patient left the ED. vc1 vc1
--- NOTE | 2023-06-26 02:48 | EDPHYS ---
Physician Documentation [facility] Name: Rich Land Age: 43 yrs Sex: Male : 1980 Arrival Date: 06/26/2023 Time: 02:02 Bed 5 Private MD: ED Physician Rodrigo Castanon HPI: 06/25 02:21 This 43 yrs old Male presents to ER via Ambulatory with complaints of sp4 Toothache. 02:21 Patient presents with left lower dental pain tooth #18. sp4 02:51 Patient states that moderate to severe pain has started yesterday. Patient used dental sp4 cement that is sold at [id number] to patch up the cavity in left lower tooth #18.. . Historical: - Allergies: 02:12 No Known Allergies; cm10 - PMHx: 02:12 None; cm10 - PSHx: 02:12 hernia repair; cm10 - Immunization history:: Adult Immunizations up to date. - Infectious Disease History:: Denies. - Social history:: Smoking status: unknown. - Family history:: not pertinent. ROS: 02:51 Constitutional: Negative for fever, chills, and weight loss, ENT: Positive left lower sp4 dental pain 02:51 All other systems are negative, Exam: 02:51 Constitutional: This is a well developed, well nourished patient who is awake, alert, sp4 and in no acute distress. Head/Face: Normocephalic, atraumatic. Eyes: Pupils equal round and reactive to light, extra-ocular motions intact. Lids and lashes normal. Conjunctiva and sclera are not injected. Cornea within normal limits. Periorbital areas with no swelling, redness, or edema. ENT: Nares patent. No nasal discharge, no septal abnormalities noted. Tympanic membranes are normal and external auditory canals are clear. Oropharynx with no redness, there is left lower gingival tenderness, tooth #18 large cavity recently patched with dental cement. No signs of gingival abscess amenable to drainage Neck: Trachea midline, no thyromegaly or masses palpated, and no cervical lymphadenopathy. Supple, full range of motion without nuchal rigidity, or vertebral point tenderness. Chest/axilla: Normal chest wall appearance and motion. Nontender with no deformity. No lesions are appreciated. Cardiovascular: Regular rate and rhythm with a normal S1 and S2. No gallops, murmurs, or rubs. Normal PMI, no JVD. No pulse deficits. Respiratory: Lungs have equal breath sounds bilaterally, clear to auscultation and percussion. No rales, rhonchi or wheezes noted. No increased work of breathing, no retractions or nasal flaring. Abdomen/GI: Soft, with normal bowel sounds. No distension or tympany. No guarding or rebound. No evidence of tenderness throughout. Back: No spinal tenderness. No costovertebral tenderness. Skin: Warm, dry with normal turgor. Normal color with no rashes, no lesions, and no evidence of cellulitis. MS/ Extremity: Pulses equal, no cyanosis. Neurovascular intact. Full, normal range of motion. Neuro: Awake and alert, GCS 15, oriented to person, place, time, and situation. Cranial nerves II-XII grossly intact. Motor strength 5/5 in all extremities. Sensory grossly intact. Psych: Awake, alert, with orientation to person, place and time. Behavior, mood, and affect are within normal limits Vital Signs: 02:11 BP 151 / 92; Pulse 85; Resp 16; Temp 98.2(O); Pulse Ox 98% on R/A; Weight 102.06 kg; cm10 Height 6 ft. 2 in. ; Pain 7/10; 02:11 Body Mass Index 28.89 (102.06 kg, 187.96 cm) cm10 02:11 Pain Scale: Adult cm10 [place] Coma Score: 02:51 Eye Response: spontaneous(4). Motor Response: obeys commands(6). Verbal Response: sp4 oriented(5). Total: 15. Procedures: 02:54 Nerve block: (dental) of left inferior alveolar nerve, Medication: Marcaine 0.5%, sp4 Amount: 6 mls were injected, Effect: the patient has resolution of the pain, Set up for procedure. Performed by Rodrigo Castanon MD Patient tolerated well. Left lower dental pain has resolved after the dental block. MDM: 02:21 Patient medically screened. sp4 02:54 Differential diagnosis: dental caries, gingivitis, dental abscess, pericoronitis, sp4 aphthous ulcers, gingivostomatitis. Data reviewed: vital signs, nurses notes. ED course: Will discharge with p.o. cephalexin. Will advise 800 mg ibuprofen [id number] every 6 hours combined with 1000 Tylenol every 6 hours . Administered Medications: 02:56 Drug: Bupivacaine-Epinephrine Infiltration (0.5 %) 20 ml Infiltration once; to bedside vc1 {Note: administered by Dr. Castanon.} Route: Infiltration; 02:57 Drug: Ketorolac IM 60 mg IM once Route: IM; Site: left ventrogluteal; vc1 03:15 Follow up: Response: No adverse reaction; Marked relief of symptoms vc1 02:57 Drug: Rocephin (cefTRIAXone) IM 1 grams IM once Route: IM; Site: right ventrogluteal; vc1 03:15 Follow up: Response: No adverse reaction vc1 Disposition Summary: 06/26/23 02:48 Discharge Ordered Problem: new sp4 Symptoms: have improved sp4 Condition: Stable sp4 Diagnosis - Dental caries, unspecified sp4 - Dental root caries, acute pulpitis sp4 Followup: sp4 - With: Private Physician - When: 7 - 10 days - Reason: Recheck today's complaints Discharge Instructions: - Discharge Summary Sheet sp4 - Dental Pain, Inmm-xh-Pere sp4 Forms: - Patient Portal Instructions sp4 Prescriptions: - Cephalexin 500 mg Oral Capsule - take 1 capsule ORAL route every 8 hours for 10 days; 30 capsule; Refills: 0, sp4 Product Selection Permitted Signatures: Yuliya Aragon RN RN vc1 Rodrigo Castanon MD MD sp4 Tamy Jurado RN RN cm10
[2023-06-26 04:38] VITALS: BP 151/92; TEMP 98.2; O2SAT 98
== END 2023-06-26 03:39 | disposition home or self-care (01) ==
LOC: ER 02:02
DX: K02.7 Dental root caries (principal); K04.01 Reversible pulpitis
CPT/HCPCS: J0696

== ENCOUNTER 2024-04-10 10:43 | Emergency (ER) | payer SELFPAY ==
[2024-04-10] MEDS ORDERED: TDAP (DIPHTH,PERTUSS(ACELL),TET VAC) 0.5 ML VIAL IMVAC ONE (11:25)
--- NOTE | 2024-04-10 12:19 | RAD REPORT ---
EXAM: Hand Right 3 View HISTORY: PAIN COMPARISON: None FINDINGS: Bones: No acute fracture identified. Remote fifth metacarpal fracture. Alignment:No significant malalignment. Degenerative changes:None significant. Other: n/a IMPRESSION: No evidence of acute osseous abnormality involving the imaged hand.
--- NOTE | 2024-04-10 12:38 | ER ---
Nurse's Notes [facility] Name: Rich Land Age: 44 yrs Sex: Male : 1980 Arrival Date: 04/10/2024 Time: 10:43 Bed 20 Private MD: Diagnosis: Contusion to right index finger;Abrasion to right index finger Presentation: 04/10 11:11 Chief complaint: Hit right index finger on metal while using sledgehammer, laceration hb noted finger, bleeding controlled. Coronavirus screen: At this time, the client does not indicate any symptoms associated with coronavirus-19. Ebola Screen: No symptoms or risks identified at this time. Initial Sepsis Screen: Does the patient meet any 2 criteria? No. Patient's initial sepsis screen is negative. Does the patient have a suspected source of infection? No. Patient's initial sepsis screen is negative. Risk Assessment: Do you want to hurt yourself or someone else? Patient reports no desire to harm self or others. Onset of symptoms was April 10, 2024. 11:11 Method Of Arrival: Ambulatory hb 11:11 Acuity: BHAVYA 4 hb Triage Assessment: 11:13 General: Appears in no apparent distress. Behavior is calm, cooperative. Pain: Pain hb currently is 4 out of 10 on a pain scale. Neuro: GCS 15. Historical: - Allergies: 11:13 No Known Allergies; hb - Home Meds: 11:13 None [Active]; hb - PMHx: 11:13 DENTAL CARIES; hb - PSHx: 11:13 hernia repair; hb - Immunization history:: Last tetanus immunization: 5 yrs ago. - Infectious Disease History:: Denies. - Social history:: Smoking status: Reported history of juuling and/or vaping. - Family history:: not pertinent. Screenin:15 [facility] ED Fall Risk Assessment (Adult) History of falling in the last 3 months, aa5 including since admission No falls in past 3 months (0 pts) Confusion or Disorientation No (0 pts) Intoxicated or Sedated No (0 pts) Impaired Gait No (0 pts) Mobility Assist Device Used No (0 pt) Altered Elimination No (0 pt) Score/Fall Risk Level 0 - 2 = Low Risk Oriented to surroundings, Maintained a safe environment, Educated pt \T\ family on fall prevention, incl call for assistance when getting out of bed. Abuse screen: Denies threats or abuse. Nutritional screening: No deficits noted. Tuberculosis screening: No symptoms or risk factors identified. Assessment: 11:15 General: Appears comfortable, Behavior is calm, cooperative. Pain: Complains of pain in aa5 dorsal aspect of middle phalanx of right index finger Pain currently is 4 out of 10 on a pain scale. Quality of pain is described as aching, throbbing, Is continuous. Neuro: Level of Consciousness is awake, alert, obeys commands, Oriented to person, place, time, situation. Cardiovascular: Patient's skin is warm and dry. Respiratory: Airway is patent Respiratory effort is even, unlabored, Respiratory pattern is regular, symmetrical. GI: No signs and/or symptoms were reported involving the gastrointestinal system. : No signs and/or symptoms were reported regarding the genitourinary system. EENT: No signs and/or symptoms were reported regarding the EENT system. Derm: Skin is pink, warm \T\ dry. Musculoskeletal: Range of motion: intact in all extremities. Injury Description: Laceration sustained to dorsal aspect of middle phalanx of right index finger is clean, superficial, 0.5 to 2.5 cm long, not bleeding. 12:58 Reassessment: Patient appears in no apparent distress at this time. Patient and/or kj2 family updated on plan of care and expected duration. Pain level reassessed. Patient is alert, oriented x 3, equal unlabored respirations, skin warm/dry/pink. 12:58 Reassessment: Patient appears in no apparent distress at this time. Patient and/or kj2 family updated on plan of care and expected duration. Pain level reassessed. Patient is alert, oriented x 3, equal unlabored respirations, skin warm/dry/pink. Vital Signs: 11:11 BP 155 / 106; Pulse 85; Resp 16; Temp 98; Pulse Ox 97% on R/A; Weight 104.33 kg; Height hb 6 ft. 2 in. ; Pain 4/10; 11:11 BP 155 / 106; Pulse 85; Resp 16; Temp 98; Pulse Ox 97% ; Weight 104.33 kg; Height 6 ft. hb 2 in. ; Pain 4/10; 12:58 BP 133 / 84; Pulse 80; Resp 18; Temp 98; Pulse Ox 99% ; kj2 11:11 Body Mass Index 29.53 (104.33 kg, 187.96 cm) hb 11:11 Pain Scale: Adult hb 11:11 Pain Scale: Adult hb ED Course: 10:44 Patient arrived in ED. im 11:10 Giselle Nunes, RN is Primary Nurse. aa5 11:11 Esequiel Boss MD is Attending Physician. rt 11:13 Triage completed. hb 11:13 Arm band placed on. hb 11:15 Patient has correct armband on for positive identification. Bed in low position. Call aa5 light in reach. Side rails up X 1. 11:22 No provider procedures requiring assistance completed. aa5 12:13 Hand Right 3 View XRAY In Process Unspecified. EDMS 13:03 Provided Education on: pain management, safety. kj2 13:03 Patient did not have IV access during this emergency room visit. kj2 Administered Medications: 11:27 Drug: Boostrix Tdap IM 0.5 ml IM once; as a single dose Route: IM; Site: right deltoid; aa5 13:02 Follow up: Response: No adverse reaction kj2 Medication: 11:22 VIS not applicable for this client. aa5 Outcome: 12:37 Discharge ordered by . rt 13:02 Discharged to home ambulatory, kj2 13:02 Condition: stable 13:02 Discharge instructions given to patient, Instructed on discharge instructions, follow up and referral plans. Demonstrated understanding of instructions, follow-up care, 13:03 Patient left the ED. kj2 Signatures: Dispatcher [employer] EDTX Giselle Nunes, MARGARITO PIMENTEL aa5 Zeina James RN RN Esequiel Boss MD MD rt Fifi Patel Lorelei Mensah RN RN kj2
--- NOTE | 2024-04-10 12:38 | EDPHYS ---
Physician Documentation [facility] Name: Rich Land Age: 44 yrs Sex: Male : 1980 Arrival Date: 04/10/2024 Time: 10:43 Bed 20 Private MD: ED Physician Esequiel Boss HPI: 04/10 15:12 This 44 yrs old Male presents to ER via Ambulatory with complaints of Finger Injury - rt right hand index. 15:12 Patient presents to the ED with an injury to the right index finger. Patient rt excellently smashed with a sledgehammer causing an abrasion. Reports of pain to the area. Denies other acute complaints at this time, symptoms are aching nature, nonradiating, mild severity, no other aggravating or alleviating factors.. Historical: - Allergies: 11:13 No Known Allergies; hb - Home Meds: 11:13 None [Active]; hb - PMHx: 11:13 DENTAL CARIES; hb - PSHx: 11:13 hernia repair; hb - Immunization history:: Last tetanus immunization: 5 yrs ago. - Infectious Disease History:: Denies. - Social history:: Smoking status: Reported history of juuling and/or vaping. - Family history:: not pertinent. ROS: 15:12 Constitutional: Negative for fever, chills, and weight loss, Cardiovascular: Negative rt for chest pain, palpitations, and edema, Respiratory: Negative for shortness of breath, cough, wheezing, and pleuritic chest pain, Abdomen/GI: Negative for abdominal pain, nausea, vomiting, diarrhea, and constipation, Neuro: Negative for headache, weakness, numbness, tingling, and seizure, 15:12 MS/extremity: Positive for abrasion, pain, Exam: 15:12 Constitutional: This is a well developed, well nourished patient who is awake, alert, rt and in no acute distress. Head/Face: Normocephalic, atraumatic. Chest/axilla: Normal chest wall appearance and motion. Nontender with no deformity. No lesions are appreciated. Cardiovascular: Regular rate and rhythm with a normal S1 and S2. No gallops, murmurs, or rubs. Normal PMI, no JVD. No pulse deficits. Respiratory: Lungs have equal breath sounds bilaterally, clear to auscultation and percussion. No rales, rhonchi or wheezes noted. No increased work of breathing, no retractions or nasal flaring. Abdomen/GI: Soft, non-tender, with normal bowel sounds. No distension or tympany. No guarding or rebound. No evidence of tenderness throughout. 15:12 Musculoskeletal/extremity: Patient able to flex and extend the right index finger, there is an abrasion overlying the proximal phalanx, no lacerations amenable to primary repair, good capillary refill, no deformities noted.. Vital Signs: 11:11 BP 155 / 106; Pulse 85; Resp 16; Temp 98; Pulse Ox 97% on R/A; Weight 104.33 kg; Height hb 6 ft. 2 in. ; Pain 4/10; 11:11 BP 155 / 106; Pulse 85; Resp 16; Temp 98; Pulse Ox 97% ; Weight 104.33 kg; Height 6 ft. hb 2 in. ; Pain 4/10; 12:58 BP 133 / 84; Pulse 80; Resp 18; Temp 98; Pulse Ox 99% ; kj2 11:11 Body Mass Index 29.53 (104.33 kg, 187.96 cm) hb 11:11 Pain Scale: Adult hb 11:11 Pain Scale: Adult hb MDM: 11:21 Medical Screening Exam initiated rt 15:12 Differential diagnosis: Fracture, contusion, abrasion. Data reviewed: vital signs, rt nurses notes, radiologic studies. Independent interpretation of the following test(s) in the Emergency Department X-Ray: My interpretation is No fracture seen on interpretation of x-ray images. Counseling: I had a detailed discussion with the patient and/or guardian regarding the historical points, exam findings, and any diagnostic results supporting the discharge/admit diagnosis, radiology results, the need for outpatient follow up. 04/10 11:21 Order name: Hand Right 3 View XRAY; Complete Time: 12:25 rt Administered Medications: 11: Drug: Boostrix Tdap IM 0.5 ml IM once; as a single dose Route: IM; Site: right deltoid; aa5 13:02 Follow up: Response: No adverse reaction kj2 Disposition Summary: 04/10/24 12:37 Discharge Ordered Notes: Location: Home rt Problem: new rt Symptoms: have improved rt Condition: Stable rt Diagnosis - Contusion to right index finger rt - Abrasion to right index finger rt Followup: rt - With: Private Physician - When: 2 - 3 days - Reason: Discharge Instructions: - Discharge Summary Sheet rt - Abrasion rt - Contusion rt Forms: - Medication Reconciliation Form rt - Antibiotic Education rt - Prescription Opioid Use rt - Patient Portal Instructions rt - Leadership Thank You Letter rt Signatures: Dispatcher [employer] Giselle Myers RN RN aa5 Zeina James RN RN hb [place], Ryan, MD MD rt Lorelei Mensah RN kj2
[2024-04-10 14:47] VITALS: TEMP 98
[2024-04-10 14:48] VITALS: BP 133/84; O2SAT 99
== END 2024-04-10 13:03 | disposition home or self-care (01) ==
LOC: ER 10:43
DX: S60.410A Abrasion of right index finger, initial encounter (principal)
CPT/HCPCS: 96372; 99284